=== PATIENT | male | born 1960 | race African-American/Black ===

== ENCOUNTER 2024-07-29 18:56 | Emergency (ER) | payer SELFPAY ==
[~2024-07-29] VITALS: Ht 177.8 cm; Wt 77.0 kg
[2024-07-29 18:58] VITALS: O2SAT 100
[2024-07-29 21:34] VITALS: TEMP 98
[2024-07-29] MEDS: ACETAMINOPHEN 325MG TABLET PO ONE (21:34)
[2024-07-29 21:36] VITALS: BP 154/78; PULSE 79; RESP 13; O2SAT 100
== END 2024-07-29 21:50 | disposition home or self-care (01) ==
LOC: ER 18:56
DX: T40.711A Poisoning by cannabis, accidental (unintentional), initial encounter (principal); X58.XXXA Exposure to other specified factors, initial encounter
CPT/HCPCS: 99283